=== PATIENT | male | born 1955 | race Caucasian/White ===

== ENCOUNTER → 2020-07-19 | Outpatient (CLI) | payer OTHER | LOC: CAT 12:28 | PROVIDERS: ATTEND Family Medicine | DX: Z13.6 Encounter for screening for cardiovascular disorders (principal); I25.10 Atherosclerotic heart disease of native coronary artery without angina pectoris; E78.00 Pure hypercholesterolemia, unspecified ==

== ENCOUNTER → 2020-07-19 | Outpatient (CLI) | payer OTHER ==
--- NOTE | 2020-07-19 14:19 | 2DMMODE ---
[facility] [place] [address] 2 D/M-MODE ECHOCARDIOGRAM Name: RINKU ALARCON Room #: REG PURA Lizzette#: [id number] Admission: 07/19/20 Attend Phys: Adam Polk DO Discharge: Date of : 59 Report #: [id number] THIS REPORT FOR: cc: Josh Correa MD, Donald E. MD Lammoglia, Francisco J. MD ~ APPROVED REPORT Study performed: 07/19/2020 13:16:01 EXAM: Comprehensive 2D, Doppler, and color-flow Echocardiogram Patient Location: Out-Patient Status: routine BSA: 2.48 HR: 89 bpm BP: 140/96 mmHg Rhythm: Atrial Fibrillation/PVCs Other Information Study Quality: Fair Technically limited study due to morbid obesity. Indications Afib. Hx: Of cardioversion 2D Dimensions RVDd: 59.88 mm IVSd: 12.01 (7-11mm) LVOT Diam: 23.84 (18-24mm) LVDd: 43.97 mm PWd: 12.41 (7-11mm) Ascending Ao: 32.33 (22-36mm) LVDs: 32.07 (25-40mm) Aortic Root: 36.74 mm Volumes Left Atrial Volume (Systole) Single Plane 4CH: 81.69 mL Single Plane 2CH: 77.94 mL LA ESV Index: 35.00 mL/m2 Aortic Valve AoV Peak Murray.: 0.95 m/s AO Peak Gr.: 3.61 mmHg LVOT Max P.50 mmHg [facility] [address] [place] [address] 2 D/M-MODE ECHOCARDIOGRAM Name: RINKU ALARCON Carla Room #: REG [facility].#: [id number] Admission: 07/19/20 Attend Phys: Adam Polk DO Discharge: Date of : 59 Report #: [id number] LVOT Max V: 0.79 m/s YOEL Vmax: 3.71 cm2 Pulmonary Valve PV Peak Murray.: 1.24 m/s PV Peak Gr.: 6.14 mmHg Tricuspid Valve TR Peak Murray.: 2.33 m/s TR Peak Gr.: 22.00 mmHg Left Ventricle The left ventricle is normal size. There is normal LV segmental wall motion. Mild concentric left ventricular hypertrophy. Left ventricular systolic function is normal. LVEF is 55-60%. This study is not technically sufficient to allow evaluation of the LV diastolic function due to atrial fibrillation. Right Ventricle Right ventricle is dilated. Function appears normal. Atria Biatrial enlargement. Aortic Valve The aortic valve is normal in structure. No aortic regurgitation is present. There is no aortic valvular stenosis. Mitral Valve The mitral valve is normal in structure. Trace mitral regurgitation. Tricuspid Valve The tricuspid valve is normal in structure. Trace tricuspid regurgitation. Estimated PAP is 22mmHg plus the right atrial pressure. Pulmonic Valve The pulmonary valve is normal in structure. There is no pulmonic valvular regurgitation. Great Vessels The aortic root is normal in size. The ascending aorta is normal in size. IVC is not well visualized. Pericardium There is no pericardial effusion. [facility] [address] [place] [address] 2 D/M-MODE ECHOCARDIOGRAM Name: NANCYCURTISRINKU Room #: REG CL [facility]#: [id number] Admission: 07/19/20 Attend Phys: Adam Polk DO Discharge: Date of : 59 Report #: [id number] <Conclusion> The left ventricle is normal size. LVEF is 55-60%. Mild concentric left ventricular hypertrophy. LVEF is 55-60%. Right ventricle is dilated. Function appears normal. Biatrial enlargement. The aortic valve is normal in structure. The mitral valve is normal in structure. Trace mitral regurgitation. The tricuspid valve is normal in structure. Trace tricuspid regurgitation. Estimated PAP is 22mmHg plus the right atrial pressure. The pulmonary valve is normal in structure. There is no pericardial effusion. Rhythm is atrial fibrillation <ELECTRONICALLY SIGNED> By: Juliano Up MD 07/19/20 1418 1418 1418 Juliano Up MD /INF
== END ==
LOC: RAD 12:35
PROVIDERS: ATTEND Family Medicine
DX: I48.20 Chronic atrial fibrillation, unspecified (principal); I51.7 Cardiomegaly